=== PATIENT | male | born 1940 | race Caucasian/White ===

== ENCOUNTER → 2016-12-23 | Outpatient (CLI) | payer MEDICARE, OTHER ==
--- NOTE | 2016-12-23 13:09 | KCIC ---
MR LUMBAR SPINE HISTORY:Reason For StudyReason: LUMBAR STENOSIS / Spl. Instructions: H/O epidural injections, no surgery, Prev. on Pacs 11/15/2013 / History: Chronic LBP entire lt leg pain, worse since late 2015, heavy lifting COMPARISON: None Technique: Sagittal T2, sagittal STIR, and sagittal T1-weighted images were obtained. Additional axial T1 and T2 weighted imaging was also performed. FINDINGS: Alignment and curvature are within normal limits. There is no compression fracture. There is moderate degenerative disc disease at all levels of the lumbar spine. The conus terminates normally at the level of T12-L1. Visualized intra-abdominal contents are within normal limits. At L5-S1 there is moderate disc height loss and broad-based disc protrusion that extends into the right foramen causing mass effect upon the exiting right L5 nerve. At L4-L5 there is a broad-based disc protrusion and moderate disc height loss. There is also ligamentum flavum thickening. This results in moderate to severe central spinal stenosis. At L3-L4 there is moderate disc height loss and a broad-based disc extrusion. There is also ligamentum flavum thickening. This combination of findings results in severe central spinal stenosis. At L2-L3 there is a broad-based disc protrusion that results in moderate central spinal stenosis. At L1-L2 there is a broad-based disc osteophyte complex but no significant central spinal or neural foraminal stenosis. Impression: - Moderate multilevel degenerative disc disease throughout the lumbar spine. This is most significant at the level of L3-L4 where there is severe central spinal stenosis. Other degenerative changes per level as above. Electronically signed by: David Roque (Dec 23, 2016 13:07:34)
== END | disposition home or self-care (01) ==
LOC: KCIC MRI 11:21
PROVIDERS: ATTEND Physician Assistant Medical
DX: M51.36 Other intervertebral disc degeneration, lumbar region (principal); M51.26 Other intervertebral disc displacement, lumbar region; M25.78 Osteophyte, vertebrae
CPT/HCPCS: 72148

== ENCOUNTER → 2017-08-14 | Outpatient (CLI) | payer MEDICARE, OTHER ==
--- NOTE | 2017-08-14 09:55 | KCIC ---
INDICATION: Lumbar radiculopathy. Low back pain and lower extremity radiculopathy for 10 years. TECHNIQUE: Sagittal T1, sagittal T2, sagittal STIR, axial T1, and axial T2 sequences are provided. No comparison is available. FINDINGS: There is no malalignment. There is endplate irregularity which appears degenerative with a few small Schmorl's nodes. There is narrowing of the interspace diffusely. There is disc desiccation. There are probably vacuum discs throughout the lumbar spine. There is minimal endplate edema which appears degenerative at L2-L3 and L3-L4. There is no worrisome marrow lesion. There is minimal subcutaneous edema. The conus medullaris is normal in signal intensity and in position. The numbering system assumes 5 lumbar type vertebral bodies. Findings by individual level are as follows: T11-T12: There is a disc osteophyte complex partially included on sagittal imaging. This level was not included in the axial plane. There is no definite canal or foraminal compromise. T12-L1: There is an irregular disc osteophyte complex with right paracentral herniation. This appears to be an extrusion-type herniation migrating inferiorly measuring 15 mm craniocaudal, 10 mm transverse, and 2 to 3 mm AP. There is facet hypertrophy which is minimal. There is no canal or foraminal compromise. L1-L2: There is a disc osteophyte complex and mild facet hypertrophy. Midline AP diameter of the thecal sac is minimally narrowed to 10-11 mm. There is mild foraminal narrowing. L2-L3: Disc osteophyte complex is noted with a central extrusion migrating inferiorly measuring 16 mm at its base, 6 mm in height, and extending 11 mm craniocaudal. There is also mild to moderate facet hypertrophy and mild ligamentum flavum hypertrophy. There is canal stenosis with midline AP diameter of the thecal sac narrowed to 8 mm. There is lateral recess narrowing. This is mild. Foraminal narrowing is also noted and mild. L3-L4: Irregular disc osteophyte complex is noted along with marked facet and ligamentum flavum hypertrophy. There is prominent epidural fat. There is severe canal stenosis, minimal CSF surrounding the nerve roots. Midline AP diameter of the thecal sac is 5 mm. There is lateral recess narrowing bilaterally. Foraminal narrowing is [id number]. L4-L5: There is a diffuse disc bulge. There is a left paracentral protrusion. There is marked facet hypertrophy and mild ligamentum flavum hypertrophy. There is moderate to severe canal stenosis, some CSF surrounding the nerve roots. Midline AP diameter of the thecal sac is 7 mm. There is high-grade left lateral recess narrowing which could explain a left L5 radiculopathy. There is also right lateral recess narrowing. Foraminal narrowing is moderate to severe on the right and moderate on the left. L5-S1: There is a disc osteophyte complex and facet hypertrophy with mild left and moderate to severe right foraminal narrowing. There is mild right lateral recess narrowing. Osteophyte complex is eccentric to the left. IMPRESSION: 1. Degenerative changes in the lumbar spine are greatest at L3-L4 and L4-L5. Electronically signed by: Tommie Velez MD (08/14/2017 9:52 AM) [id number]
== END | disposition home or self-care (01) ==
LOC: KCIC MRI 08:16
PROVIDERS: ATTEND Anesthesiology Pain Medicine
DX: M54.16 Radiculopathy, lumbar region (principal); M47.896 Other spondylosis, lumbar region; K46.9 Unspecified abdominal hernia without obstruction or gangrene; M25.78 Osteophyte, vertebrae; M48.061 Spinal stenosis, lumbar region without neurogenic claudication
CPT/HCPCS: 72148